=== PATIENT | male | born 1945 ===

== ENCOUNTER 2025-04-09 14:59 | Outpatient (AMB) | payer MEDICARE, SELFPAY ==
--- NOTE | 2025-04-09 15:12 | MHC.OFFVIS ---
Intake Visit Reasons: Follow up Allergies apixaban (From [employer]reos) Allergy (Unknown, Verified 04/08/25 11:17) Unknown HPI Comments Details: No change in his balance. No falls. Drinks 1 social drink twice a week since 09/19/24. He has been a heavy consumer of alcohol, drinking 6 ounces of liquor every day for 40+ years. In the last few years, he has reduced his alcohol intake.?In the last 20-30 years, he's noticed that his balance is not good and he staggers at times but keeps himself from falling.? He has no family history of ataxia.? He has never been worked up for his balance problems.? He rarely uses and Adderall once every few months if he has to do some concentration work.? He was diagnosed with ADD many years ago.? His blood pressure is under control.? At one point he had atrial fibrillation and was cardioverted and he is on Xarelto. His A fib came back. Had a retinal hemorrhage in right eye. [facility] Medical History (Updated 04/09/25 @ 15:15 by Radha Saunders MD) ESPERANZA on CPAP Cerebellar ataxia Review of Systems Const Details: ?Sleep:? Difficulty getting to sleepdenies.? Difficulty maintaining sleepdenies?.? Urge to move legsdenies.? Teeth grindingdenies.? Shouting or Kicking during sleepdenies.? Abnormal behavior during sleepdenies.? Excessive sleepdenies.? Snoringdenies.? Daytime sleepinessdenies. ???General/Constitutional:? Change in appetitedenies.? Chillsdenies.? Fatigueadmits.? Feverdenies.? Weight gaindenies.? Weight lossdenies. ???Ophthalmologic:? Blurred visiondenies.? Diminished visual acuitydenies. ???ENT:? Stuffinessdenies.? Decreased hearingdenies.? Dry mouthdenies.? Ear paindenies.? Nosebleeddenies.? Ringing in the earsdenies.? Sinus paindenies.? Sore throatdenies.? Swollen glandsdenies. ???Endocrine:? Cold intolerancedenies.? Excessive thirstdenies.? Frequent urinationdenies.? Heat intolerancedenies. ???Respiratory:? Shortness of breathadmits.? Chest paindenies.? Coughdenies. ???Breast:? Breast lumpdenies.? Nipple dischargedenies. ???Cardiovascular:? Chest pain at restdenies.? Chest pain with exertiondenies.? Claudicationdenies.? Dizzinessdenies.? Fluid accumulation in the legsdenies.? Irregular heartbeatdenies.? Palpitationsdenies. ???Gastrointestinal:? Abdominal paindenies.? Constipationdenies.? Diarrheadenies.? Difficulty swallowingdenies.? Heartburndenies.? Nauseadenies.? Rectal bleedingdenies. ???Hematology:? Easy bruisingdenies.? Prolonged bleedingdenies. ???Genitourinary:? Frequent urinationdenies.? Urgencydenies.? Incontinencedenies.? Erectile Dysfunctiondenies. ???Musculoskeletal:? Neck paindenies.? Back paindenies.? Muscle achesadmits.? Painful jointsdenies.? Sciaticadenies.? Weaknessadmits. ???Podiatric:? Difficulty walkingdenies.? Foot numbnessdenies. ???Neurologic:? Difficulty swallowingdenies.? Balance difficultyadmits.? Coordinationnormal.? Difficulty speakingdenies.? Dizzinessdenies.? Faintingdenies.? Gait abnormalityadmits.? Headachedenies.? Loss of strengthdenies.? Loss of use of extremitydenies.? Low back paindenies.? Memory lossdenies.? Seizuresdenies.? Ticsdenies.? Tingling/Numbnessdenies.? Transient loss of visiondenies.? Tremordenies. ???Psychiatric:? Anxietydenies.? Auditory/visual hallucinationsdenies.? Delusionsdenies.? Depressed mooddenies.? Stressorsdenies.? Substance abusedenies.? Suicidal thoughtsdenies. Physical Exam Neuro Other: Neurological: Abnormal neurological findings:??Broad based gait . Truncal ataxia on tandem walking. No limb ataxia.?Mental Status:??alert and oriented X 3,?Normal attention, orientation, memory and affect.?Cranial Nerves:??Pupils are equal, round and reactive to light. Fundoscopy shows normal disc bilaterally. External ocular muscles are intact. Visual martinez are full, no ptosis. Face is symmetrical, no facial weakness or droop. Facial sensations are normal. Tongue protrudes in midline. Palate elevates symmetrically. Shoulder shrugging is normal..?Motor Examination:??Normal muscle tone, bulk and strength,?No atrophy or fasciculations,?No drift of the extended upper extremities,?Deep tendon reflexes are 2+?,?Plantars are flexor?.?Straight Leg Raising:??90 degrees.?Sensory Exam:??Normal light touch, temperature, pinprick, vibration and joint-position sensations?,?Rhomberg sign is absent.?Coordination:??no ataxia,?no titubation,?aziduq-[id number], cxeu-ceuo-msws test and rapid alternating movements were normal.?Gait Exam:??Within normal limits.?Cerebellar Signs:??Lrhwul-jz-[id number] and asmn-cv-qjpc is normal,?no dysdiadochokinesia?.?Extrapyramidal System:??No tremor, rigidity with normal facial expressions,?No bradykinesia, no bradyphrenia. Normal arm swing and posture. No propulsion or retropulsion.?Speech:??Normal,?no dysphasia or dysarthria..? Mini Mental Status Exam: Level of Consciousness:??Alert.?Orientation:??Knows correct year, month, date, day and season,?Knows correct city, county and state. Knows correct location and floor.?Registration:??Able to register 3 objects.?Attention:??Serial 7's performed accurately.?Recall:??Able to recall 3 out of 3 objects.?Language:??Normal spontaneous speech, fluency, repetition,naming, comprehension, reading and writing.?Total Score:??30/30.? General Examination: GENERAL APPEARANCE:??normal,?in no acute distress.?HEAD:??normocephalic,?atraumatic.?EYES:??sclera non-icteric,?conjunctiva clear.?EARS:??auditory canal clear,?tympanic membrane intact, clear.?NOSE:??no lesions.?ORAL CAVITY:??gums normal,?mucosa moist,?no lesions.?THROAT:??clear.? 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 Code(s): G11.9 - Hereditary ataxia, unspecified Category: Medical (2) ESPERANZA on CPAP: Code(s): G47.33 - Obstructive sleep apnea (adult) (pediatric) Category: Medical Plan Absolutely no alcohol use. Take Vitamin B complex 1/ day??. Daily walking for balance. Coding Level of Care Code Est Pt Level 4 (09472) Diagnoses Cerebellar ataxia G11.9 ESPERANZA on CPAP G47.33
--- OUTSIDE RECORDS SUMMARY | 2025-04-09 17:59 | XMS_ITS ---
Author Name [facility] Organization Unknown Encounters Encounter Type Encounter Reason Primary Diagnosis Location Date Ambulatory [facility], [facility] 06/06/2023 Care Team Organization Name Specialty Phone Email Start Date End Da te Bella Valverde MD, [facility] 024 08/15/2023
--- OUTSIDE RECORDS SUMMARY | 2025-04-09 17:59 | XMS_ITS | Encounter Summary ---
Author Organization [facility] Address [address] [place] [address] Care Team Providers Care Account Manager Sales Representative Name Role Phone Jasbir Wang MD Primary Care Provider [phone] Encounter Details Date Type Department Care Team (Late st Contact Info) Description 04/08/2025 Telephone Internal Medicine - [facility] [address] [facility] [place] [phone] Whit Oliver MA Social History Tobacco Use Types Packs/Day Years Used Date Smoking Tobacco: Former Smokeless Tobacco: Former Alcohol Use Standard Drinks/Week Comments Yes 0 (1 standard drink = 0.6 oz pur e alcohol) Sex and Gender Information Value Date Recorded Sex Assigned at Not on file Legal Sex Male 8:13 AM EST Gender Identity Not on file Sexual Orientation Not on file documented as of this encounter Progress Notes * Angela Hills MA - 04/09/2025 3:51 PM EST I spoke with Mr. Rivera inform on 04/08/25 benazepril 40 mg was called into pharmacy . Confirm 04/18/25 visit pending, per patient . KA * Whit Oliver MA - 04/08/2025 9:59 AM EST Left message to call back ask to speak to Dr Kathleen VELEZ x [phone] If no answer, please re-message to ebony stauffer. Regarding appt on 04/18/25. documented in this encounter Plan of Treatment Upcoming Encounters Date Type Department Care Team (Late st Contact Info) Description 04/14/2025 9:40 AM EST Office Visit [facility] [address] [place] [address] [address] [place] [phone] Neva Martines NP [address] [place] [address] [address] [place] [phone] 04/18/2025 11:00 AM EST Office Visit Internal Medicine - [address] [phone] Jasbir Wang MD [address] [place] [phone] documented as of this encounter Visit Diagnoses Not on filedocumented in this encounter Care Teams Account Manager Sales Representative Relationship Specialty Start Date End Date Jasbir Wang MD [address] [place] [phone] PCP - General Internal Medicine 07/22/24 documented as of this encounter
--- OUTSIDE RECORDS SUMMARY | 2025-04-09 17:59 | XMS_ITS | Clinical Summary ---
Author Organization [facility] Address [address] [place] [address] Phone Care Team Providers Care Call Center Analyst Name Role Phone Jasbir Wang MD Primary Care Provider [phone] Allergies Active Allergy Reactions Criticality Noted Date Comments Apixaban Medium 07/25/2023 Rash all over body Dabigatran Etexilate Rash 09/06/2024 Medications metoprolol succinate (TOPROL-XL) 25 mg 24 hr tablet Take 1 tablet (25 mg total) by mouth 1 (one) time each day. 90 tablet 1 5 Active rivaroxaban (Xarelto) 20 mg tablet TAKE 1 TABLET BY MOUTH DAILY 90 tablet 1 5 Active amLODIPine (NORVASC) 10 mg tablet TAKE 1 TABLET BY MOUTH DAILY 90 tablet 5 Active benazepriL (LOTENSIN) 40 mg tablet TAKE 1 TABLET BY MOUTH DAILY 90 tablet 1 5 Active benazepriL (LOTENSIN) 40 mg tablet TAKE 1 TABLET BY MOUTH DAILY 90 tablet 1 5 04/08/20 25 Discontinued Active Problems Problem Noted Date Diagnosed Date Edema 10/23/2023 Overview (04/15/2024): Last Assessment & Plan: The patient has approximately edema which per his description is not present in the morning but develops throughout the day and is worse in the afternoon. The symptoms are suggestive of venous insufficiency. Will order a venous insufficiency study for further evaluation. Atrial fibrillation (CMS/HCC V24, CMS/HCC V28) 0 07/24/2023 Overview (04/15/2024): Last Assessment & Plan: The patient has a history of atrial fibrillation status post elective electrical cardioversion in November. EKG today shows normal sinus rhythm at a rate of 66 bpm. He denies any perception of atrial fibrillation or palpitations. He has a OBO1QS4- VASc score of 5. His last office visit he was transitioned to Xarelto given an ongoing rash in his bilateral lower legs. On today's visit, he reports since transitioning to Xarelto, he has complete resolution of the rash and denies any complaints today. He will continue to follow with dermatology and his primary care provider. He will also continue on rate control therapy with beta-khoa. Recent echocardiogram showed normal LV function. At this point, we will continue current therapies and he will notify me of any changes. Assessment & Plan (07/23/2024 8:08 AM EDT): The patient has a history of atrial fibrillation status post elective electrical cardioversion in the past. He denies any perception of atrial fibrillation or palpitations. He has a [id number]-[id number] score of 5. His heart rate is well controlled today and continues on beta-khoa. Last echocardiogram showed normal LV function. He denies any abnormal bleeding or bruising. At this point, we will continue current therapies and he will notify me of any changes. Right inguinal hernia 03/19/2019 Bilateral carpal tunnel syndrome 12/10/2018 Overview (04/15/2024): S/p surgery Essential hypertension 02/27/2015 Overview (04/15/2024): Last Assessment & Plan: Patient's blood pressure is well-controlled today. He will continue his current antihypertensive medication regimen as prescribed. Assessment & Plan (07/23/2024 8:08 AM EDT): BP well controlled at home. Slightly elevated today given he reports he lost his keys on the way here. He will continue his current medication regimen and continue to monitor his Bps at home. He will notify me of any consistently elevated readings. Adenomatous polyp of colon 10/03/2013 Erectile dysfunction 01/06/2011 Obesity (BMI 30-39.9) 01/06/2011 Liver nodule 05/17/2007 Lung mass 05/14/2007 Overview (04/15/2024): 11/2007 and 11/2009. Stable, benign pulmonary nodules. There is no indication for further followup. ADD (attention deficit disorder) 11/15/2005 Overview (04/15/2024): Sees Dr. Mena Resolved Problems Problem Noted Date Diagnosed Date Resolved Date Dyspnea 10/23/2023 07/23/2024 Overview (04/15/2024): Last Assessment & Plan: The patient has symptoms of exertional dyspnea. Recent echocardiogram showed a normal cardiac function and no significant valvular disease. The patient does have multiple risk factors for the development of CAD including hypertension and hyperlipidemia. Therefore, we will need to consider the possibility of ischemic heart disease. Will pursue an exercise stress test to rule out the presence of ischemic heart disease as a cause of the patient's symptoms TIA (transient ischemic attack) 02/10/2020 07/23/2024 Overview (04/15/2024): Last Assessment & Plan: Patient had TIA 01/[address] angio did not show any significant stenosis, 30 day monitor was normal and echocardiogram did not show any abnormalities. Patient was previously on aspirin and statin but he stopped both of these due to GI upset. He was previously on chewable aspirin. We discussed his h/o TIA and recommend he try enteric coated asprin. He will continue to follow with PCP regarding GI upset. Encounters Date Type Department Care Team Description 04/08/2025 Telephone Internal Medicine - [facility] [address] [place] [id number] Whit Oliver MA 03/18/2025 Telephone [facility] [address] [address] [place] [phone] Neva Martines NP 02/11/2025 2:15 PM EDT [facility] [address] [place] [phone] Chas Garza PA Generalized abdominal pain (Primary Dx) 02/03/2025 3:50 PM EDT - 02/03/2025 10:02 PM EDT Emergency [facility] Emergency [address] [place] [address] Betty Vu MD Pneumonia of both lungs due to infectious organism, unspecified part of lung (Primary Dx); Lightheadedness; Other fatigue; Hypokalemia; Acute cough; Atrial fibrillation, unspecified type (CMS/HCC V24, CMS/HCC V28); Bradycardia Discharge Disposition: Home or Self Care from Last 3 Months Immunizations Immunization Administration Dates Next Due Influenza trivalent, 0.5mL ( Fluad) 65yo and older 02/10/2020,12/22/2016,02/10/2016 Influenza trivalent, 0.5mL, preservative free (Fluarix; FluLaval; Fluzone) ages 6mo and older (Afluria) 3 years and older 01/18/2018,02/27/2015,05/10/2014,12/25,01/10/2012,01/13/2011,01/19/2010 Influenza, Unspecified 02/06/2024,01/30/2023,07/2021 Pfizer SARS-CoV-2 COVID-19, mRNA, LNP-S, preservative free 08/18/2020 Pneumococcal conjugate 13 va lent (Prevnar 13, PCV13) 2mo and older 06/19/2017 Pneumococcal polysaccharide 23 valent (Pneumovax 23) 2yo and older 06/14/2012 Tdap Tetanus diptheria acell ular pertussis (Boostrix; Adacel) 7yo and older 10/03/2013 Surgical History Surgery Date Site/Laterality Comments HERNIA REPAIR PROCEDURE: REPAIR UMBILICAL HERNIA COLONOSCOPY 2006 PROCEDURE: HISTORICAL COLONOSCOPY; COMMENT: adenoma; repeat in five years COLONOSCOPY 04/21/14 PROCEDURE: MN COLONOSCOPY STOMA DX INCLUDING COLLJ SPEC SPX; COMMENT: tics; repeat in 10 yrs OTHER SURGICAL HISTORY Left PROCEDURE: MN RPR 1ST INGUN HRNA AGE 5 YRS/> REDUCIBLE CARPAL TUNNEL RELEASE PROCEDURE: MN NEUROPLASTY &/TRANSPOS MEDIAN NRV CARPAL TUNNE Medical History Medical History Date Comments Attention deficit disorder w ithout mention of hyperactivity DX:Attention deficit disorde r without mention of hyperactivity Unspecified essential hypertension DX:Unspecified essential hypertension Erectile dysfunction DX:Erectile dysfunction Obesity DX:Obesity Cerebrovascular disease DX:Cereb rovascular disease Atrial fibrillation (CMS/HCC V24, CMS/HCC V28) Family History Medical History Relation Name Comments Heart attack Father Alzheimer's disease Mother Breast cancer Mother Cataracts Mother Diabetes Mother Hypertension Mother Relation Name Status Comments Father OH at age 78 Mother Alive hyperlipid, Social History Tobacco Use Types Packs/Day Years Used Date Smoking Tobacco: Former Smokeless Tobacco: Former Tobacco Cessation:Counseling Given: Not Answered Alcohol Use Standard Drinks/Week Comments Yes 0 (1 standard drink = 0.6 oz pur e alcohol) Sex and Gender Information Value Date Recorded Sex Assigned at Not on file Legal Sex Male 8:13 AM EST Gender Identity Not on file Sexual Orientation Not on file Obstetrics History Last Filed Vital Signs Vital Sign Reading Time Taken Comments Blood Pressure 162/67 02/11/2025 2:30 PM EDT Pulse 67 02/11/2025 2:30 PM EDT Temperature 37.1 C (98.8 F) 02/11/2025 2:30 PM EDT Respiratory Rate 16 02/03/2025 4:37 PM EDT Oxygen Saturation 98% 02/11/2025 2:30 PM EDT Inhaled Oxygen Concentration - - Weight 109 kg (240 lb) 02/03/2025 2:01 PM EDT Height 177.8 cm (5' 10 ) 02/03/2025 2:01 PM EDT Body Mass Index 34.44 02/03/2025 2:01 PM EDT Plan of Treatment Upcoming Encounters Date Type Department Care Team (Late st Contact Info) Description 04/14/2025 9:40 AM EST Office Visit [facility] [address] [place] [address] [address] [place] [phone] Neva Martines NP [address] [place] [address] [address] [place] [id number] 04/18/2025 11:00 AM EST Office Visit Internal Medicine - [facility] [address] [place] [address] Jasbir Wang MD [address] [place] [phone] Health Maintenance Due Date Last Done Comments Zoster Vaccines (1 of 2) 1997 RSV Immunization Adult Patients (1 - 1-dose 75+ series) 2022 Falls Risk Assessment 04/16/2022 Social Influencers of Health Screening 04/16/2022 DTaP,Tdap,and Td Vaccines (2 - Td or Tdap) 10/04/2023 10/03/2013 Depression Screening 05/08/2024 03/01/2024 COVID-19 Vaccine ( - season) 2025 07/29/2021, 08/18/2020 Medicare Annual Wellness Visit 03/01/2025 03/01/2024 Hypertension/CHF/CAD Annual BMP Blood Test 02/13/2026 02/13/2025, 02/03/2025, 07/31/2024, Additional history exists Cholesterol Screening (Lipid Panel) 07/31/2029 07/31/2024, 11/07/2023, 11/07/2023 Hepatitis C Screening Completed 10/03/2013 Pneumococcal Vaccine: 50+ Years Completed 06/19/2017, 06/14/2012 Influenza Vaccine Completed 12/28/2024, , 02/06/2024, Additional history exists HIB Vaccines Aged Out No longer eligi ble based on patient's age to complete this topic HPV Vaccines Aged Out No longer eligi ble based on patient's age to complete this topic Hepatitis A Vaccines Aged Out No long er eligible based on patient's age to complete this topic Hepatitis B Vaccines Aged Out No long er eligible based on patient's age to complete this topic IPV Vaccines Aged Out No longer eligi ble based on patient's age to complete this topic MMR Vaccines Aged Out No longer eligi ble based on patient's age to complete this topic Meningococcal ACWY Vaccine Aged Out N o longer eligible based on patient's age to complete this topic Meningococcal B Vaccine Aged Out No l onger eligible based on patient's age to complete this topic RSV Immunization Patients Under 20 months Aged Out No longer eligible based on patient's age to complete this topic Varicella Vaccines Aged Out No longer eligible based on patient's age to complete this topic Procedures Procedure Name Priority Date/Time Associated Diagnosis Comments CBC WITH AUTO DIFFERENTIAL Routine 02/13/2025 11:03 AM EDT Generalized abdominal pain CBC AND DIFFERENTIAL Routine 02/13/2025 11:03 AM EDT Generalized abdominal pain AMYLASE Routine 02/13/2025 11:03 AM EDT Generalized abdominal pain LIPASE Routine 02/13/2025 11:03 AM EDT Generalized abdominal pain COMPREHENSIVE METABOLIC PANEL Routine 02/13/2025 11:03 AM EDT Generalized abdominal pain ECG ANNOTATED 02/04/2025 CT CHEST W CONTRAST STAT 02/03/2025 6 :03 PM EDT ECG 12-LEAD STAT 02/03/2025 4:59 PM EDT CBC WITH AUTO DIFFERENTIAL STAT 02/03/2025 4:42 PM EDT TROPONIN I HIGH SENSITIVITY STAT 02/03/2025 4:42 PM EDT B-TYPE NATRIURETIC PEPTIDE STAT 02/03/2025 4:42 PM EDT MAGNESIUM STAT 02/03/2025 4:42 PM EDT LIPASE STAT 02/03/2025 4:42 PM EDT COMPREHENSIVE METABOLIC PANEL STAT 02/03/2025 4:42 PM EDT CBC AND DIFFERENTIAL STAT 02/03/2025 4:42 PM EDT RESPIRATORY VIRUS PANEL MOLECULAR STUDY STAT 02/03/2025 4:42 PM EDT XR CHEST 2 VIEWS STAT 02/03/2025 2:34 PM EDT ECG 12-LEAD STAT 02/03/2025 2:07 PM EDT LIPID PANEL WITH REFLEX TO DIRECT LDL Routine 07/31/2024 10:53 AM EDT Longstanding persistent atrial fibrillation (CMS/HCC V24, CMS/HCC V28) Essential hypertension DEPRESSION SCREENING Routine 03/01/2024 HEPATITIS C SCREENING Routine 10/03/2013 from Last 3 Months or Most Recently Relevant to Health Maintenance Results * (ABNORMAL) CBC auto differential (02/13/2025 11:03 AM EDT) Only the most recent of2 resultswithin the time period is included. WBC 7.4 4.8 - 10.8 K/mcL LAB HEMETOLOGY METHOD 02/13/2025 2:03 PM EDT [facility] RBC 4.80 4.50 - 5.50 M/mcL LAB HEMETOLOGY METHOD 02/13/2025 2:03 PM EDT [facility] Hemoglobin 14.7 13.5 - 17.5 g/dL LAB HEMETOLOGY METHOD 02/13/2025 2:03 PM [facility] Hematocrit 43.6 42.0 - 54.0 % LAB HEMETOLOGY METHOD 02/13/2025 2:03 PM EDT [facility] MCV 91.4 79.0 - 98.0 FL LAB HEMETOLOGY METHOD 02/13/2025 2:03 PM EDT [facility] MCH 30.8 27.0 - 32.0 pcg LAB HEMETOLOGY METHOD 02/13/2025 2:[facility] PM [facility] MCHC 33.7 32.0 - 37.0 g/dL LAB HEMETOLOGY METHOD 02/13/2025 2:03 PM [facility] RDW 13.6 11.0 - 15.0 % LAB HEMETOLOGY METHOD 02/13/2025 2:03 PM [facility] Platelets 237 130 - 400 K/mcL LAB HEMETOLOGY METHOD 02/13/2025 2:03 PM [facility] MPV 12.4(H) 7.0 - 11.0 FL LAB HEMETOLOGY METHOD 02/13/2025 2:03 PM [facility] NRBC 0.0 <1.0 % LAB HEMETOLOGY METHOD 02/13/2025 2:03 PM [facility] NRBC Absolute 0.00 <0.10 K/mcL LAB HEMETOLOGY METHOD 02/13/2025 2:03 PM [facility] Neutrophils Relative 59.6 % LAB HEMETOLOGY METHOD 02/13/2025 2:03 PM [facility] Lymphocytes Relative 22.9 % LAB HEMETOLOGY METHOD 02/13/2025 2:03 PM [facility] Monocytes Relative 14.5 % LAB HEMETOLOGY METHOD 02/13/2025 2:03 PM [facility] Eosinophils Relative 2.0 % LAB HEMETOLOGY METHOD 02/13/2025 2:03 PM [facility] Basophils Relative 0.9 % LAB HEMETOLOGY METHOD 02/13/2025 2:03 PM [facility] Immature Granulocytes Relative 0.1 % LAB HEMETOLOGY METHOD 02/13/2025 2:03 PM [facility] Neutrophils Absolute 4.40 1.50 - 7.00 K/mcL LAB HEMETOLOGY METHOD 02/13/2025 2:03 PM [facility] Lymphocytes Absolute 1.69 1.00 - 5.00 K/mcL LAB HEMETOLOGY METHOD 02/13/2025 2:03 PM EDT [facility] Monocytes Absolute 1.07(H) 0.20 - 1.00 K/mcL LAB HEMETOLOGY METHOD 02/13/2025 2:03 PM EDT [facility] Eosinophils Absolute 0.15 0.00 - 0.50 K/[facility] LAB HEMETOLOGY METHOD 02/13/2025 2:03 PM EDT [facility] Basophils Absolute 0.07 0.00 - 0.20 K/[facility] LAB HEMETOLOGY METHOD 02/13/2025 2:03 PM EDT [facility] Immature Granulocytes Absolute 0.01 0.00 - 0.03 K/[facility] LAB HEMETOLOGY METHOD 02/13/2025 2:03 PM EDT [facility] Blood Venous blood specimen / Unknown Venipuncture / Unknown 02/13/2025 11:03 AM EDT 02/13/2025 11:03 AM EDT us Chas RESENDEZ LAB BLOOD ORDERABLES Final Result Performing Organization Address City/[facility]/ZIP Co de Phone Number [facility] [address] [place] [address], [place] [phone] * Lipase (02/13/2025 11:03 AM EDT) Only the most recent of2 resultswithin the time period is included. Lipase 30 13 - 75 unit/L LAB CHEMISTRY METHOD 02/13/2025 3:35 PM EDT [facility] Blood Venous blood specimen / Unknown Venipuncture / Unknown 02/13/2025 11:03 AM EDT 02/13/2025 11:03 AM EDT us Chas RESENDEZ LAB BLOOD ORDERABLES Final Result [facility] [address] [place] [address], [place] [phone] * Amylase (02/13/2025 11:03 AM EDT) Pathologist [facility] [place] Amylase 56 25 - 115 unit/L LAB CHEMISTRY METHOD 02/13/2025 3:35 PM [facility] Blood Venous blood specimen / Unknown Venipuncture / Unknown 02/13/2025 11:03 AM EDT 02/13/2025 11:03 AM EDT Chas RESENDEZ LAB BLOOD ORDERABLES Final Result [facility] [address] [place] [address], * (ABNORMAL) Comprehensive metabolic panel (02/13/2025 11:03 AM EDT) Only the most recent of2 resultswithin the time period is included. Pathologist [facility] [place] Sodium 139 133 - 145 mmol/L LAB CHEMISTRY METHOD 02/13/2025 3:37 PM [facility] Potassium 3.8 3.5 - 5.5 mmol/L LAB CHEMISTRY METHOD 02/13/2025 3:37 PM [facility] Chloride 102 96 - 110 mmol/L LAB CHEMISTRY METHOD 02/13/2025 3:37 PM [facility] CO2 31 21 - 32 mmol/L LAB CHEMISTRY METHOD 02/13/2025 3:37 PM [facility] Anion Gap 6 3 - 11 LAB CHEMISTRY METHOD 02/13/2025 3:37 PM [facility] Glucose 115(H) 70 - 100 mg/dL LAB CHEMISTRY METHOD 02/13/2025 3:37 PM [facility] BUN 10 5 - 25 mg/dL LAB CHEMISTRY METHOD 02/13/2025 3:37 PM [facility] Creatinine 0.98 0.70 - 1.30 mg/dL LAB CHEMISTRY METHOD 02/13/2025 3:37 PM T [facility] eGFR 79 >=60 mL/min/1. 73m2 LAB CHEMISTRY METHOD 02/13/2025 3:37 PM T [facility] Comment:Calculation based on the Chronic Kidney Disease Epidemiology Collaboration (CKD-EPI) equation refit without adjustment for race. BUN/Creatinine Ratio 10.2 LAB CHEMISTRY METHOD 02/13/2025 3:37 PM [facility] Calcium 9.5 8.5 - 10.5 mg/dL LAB CHEMISTRY METHOD 02/13/2025 3:37 PM [facility] AST (SGOT) 24 10 - 42 unit/L LAB CHEMISTRY METHOD 02/13/2025 3:37 PM [facility] ALT (SGPT) 23 10 - 60 unit/L LAB CHEMISTRY METHOD 02/13/2025 3:37 PM [facility] Alkaline Phosphatase 123(H) 42 - 121 unit/L LAB CHEMISTRY METHOD 02/13/2025 3:37 PM [facility] Total Protein 8.3(H) 6.0 - 8.0 g/dL LAB CHEMISTRY METHOD 02/13/2025 3:37 PM [facility] Albumin 4.5 3.2 - 5.0 g/dL LAB CHEMISTRY METHOD 02/13/2025 3:37 PM [facility] Total Bilirubin 1.4 0.0 - 1.4 mg/dL LAB CHEMISTRY METHOD 02/13/2025 3:37 PM [facility] Blood Venous blood specimen / Unknown Venipuncture / Unknown 02/13/2025 11:03 AM EDT 02/13/2025 11:03 AM EDT us Chas RESENDZE LAB BLOOD ORDERABLES Final Result [facility] [address] [place] [address], * ECG-Annotated (02/04/2025) us Provider Onbase ECG ORDERABLES Final Result * CT Chest w Contrast (02/03/2025 6:03 PM EDT) Anatomical Region Laterality Modality Body Computed Tomogra phy 02/03/2025 6:46 PM EDT Impressions 02/03/2025 6:46 PM EDT 1. Mild ground-glass opacities within the lower lungs. This could be secondary to atelectasis, scarring, interstitial infiltrates or edema. 2. There is a 7 mm lingular nodule. Recommend follow-up per Fleischner criteria. This document has been electronically signed by: Randi Duong MD on 02/03/2025 18:46:10 Narrative 02/03/2025 6:46 PM EDT INDICATION: eval infection vs edema vs other CT chest with contrast Comparison: DX/SR - XR CHEST 2 VW - 02/03/25 14:47 EDT Findings: Mildly enlarged heart. Calcifications are present in association with the aortic valve. The visualized thyroid and mediastinum are unremarkable. No consolidation or pleural effusion. There is mild ground-glass opacity within the bilateral lower lungs. There is a 7 mm lingular nodule on image 69. There are multiple tiny granulomas within the lungs. There is mild lymphadenopathy within the mare hepatis with lymph nodes measuring up to 1 cm in short axis dimension. Otherwise unremarkable upper abdomen. The bones are intact. Procedure Note Aderholdt-Randi Duong MD - 02/03/2025 INDICATION: eval infection vs edema vs other CT chest with contrast Comparison: DX/SR - XR CHEST 2 VW - 02/03/25 14:47 EDT Findings: Mildly enlarged heart. Calcifications are present in association withthe aortic valve. The visualized thyroid and mediastinum are unremarkable. No consolidation or pleural effusion. There is mild ground-glass opacity within the bilateral lower lungs. There is a 7 mm lingular nodule onimage 69. There are multiple tiny granulomas within the lungs. There is mild lymphadenopathy within the mare hepatis with lymph nodes measuring up to 1 cm in short axis dimension. Otherwise unremarkableupper abdomen. The bones are intact. IMPRESSION: 1. Mild ground-glass opacities within the lower lungs. This could be secondary to atelectasis, scarring, interstitial infiltrates or edema. 2. There is a 7 mm lingular nodule. Recommend follow-up per Fleischner criteria. This document has been electronically signed by: Randi Duong MD on 02/03/2025 18:46:10 Betty Vu MD IMG CT PROCEDURES Final Result * 12-Lead ECG (02/03/2025 4:59 PM EDT) Only the most recent of2 resultswithin the time period is included. [facility] Ventricular Rate ECG 51 BPM GEMUSE Atrial Rate 340 BPM GEMUSE QRS Duration 102 ms GEMUSE Q-T Interval 442 ms GEMUSE QTc 407 ms GEMUSE R Belle 5 degrees GEMUSE T Belle 0 degrees GEMUSE ECG Interpretation Atrial fibrillation with slow ventricular response Incomplete right bundle branch block Nonspecific ST and T wave abnormality Abnormal ECG When compared with ECG of 03-FEB-2025 14:07, No significant change was found Confirmed by MD Papi, [place] ([id number]) on 02/04/2025 8:49:17 AM GEMUSE 02/03/2025 4:59 PM EDT 02/04/2025 8:49 AM EDT Betty Vu MD ECG ORDERABLES Final Result GEMUSE * Respiratory virus panel molecular study (02/03/2025 4:42 PM EDT) [facility] Adenovirus Detection by PCR Not Detected Not Detected LAB MICROBIOLOGY METHOD 02/03/2025 6:17 PM EDT [facility] Influenza A PCR Not Detected Not Detected LAB MICROBIOLOGY METHOD 02/03/2025 6:17 PM EDT [facility] Influenza B PCR Not Detected Not Detected LAB MICROBIOLOGY METHOD 02/03/2025 6:17 PM EDT [facility] Coronavirus 229E Not Detected Not Detected LAB MICROBIOLOGY METHOD 02/03/2025 6:17 PM EDT [facility] Coronavirus HKU1 Not Detected Not Detected LAB MICROBIOLOGY METHOD 02/03/2025 6:17 PM EDT [facility] Coronavirus OC43 Not Detected Not Detected LAB MICROBIOLOGY METHOD 02/03/2025 6:17 PM EDT [facility] Coronavirus NL63 Not Detected Not Detected LAB MICROBIOLOGY METHOD 02/03/2025 6:17 PM EDT [facility] Parainfluenza Virus 1 Not Detected Not Detected LAB MICROBIOLOGY METHOD 02/03/2025 6:17 PM EDT [facility] Parainfluenza Virus 2 Not Detected Not Detected LAB MICROBIOLOGY METHOD 02/03/2025 6:17 PM EDT [facility] Parainfluenza Virus 3 Not Detected Not Detected LAB MICROBIOLOGY METHOD 02/03/2025 6:17 PM EDT [facility] Parainfluenza Virus 4 Not Detected Not Detected LAB MICROBIOLOGY METHOD 02/03/2025 6:17 PM EDT [facility] RSV PCR Not Detected Not Detected LAB MICROBIOLOGY METHOD 02/03/2025 6:17 PM EDT [facility] Human Metapneumovirus A and B Not Detected Not Detected LAB MICROBIOLOGY METHOD 02/03/2025 6:17 PM EDT [facility] Rhinovirus/Entero virus Not Detected Not Detected LAB MICROBIOLOGY METHOD 02/03/2025 6:17 PM EDT [facility] Bordetella pertussis Not Detected Not Detected LAB MICROBIOLOGY METHOD 02/03/2025 6:17 PM EDT [facility] Bordetella parapertussis Not Detected Not Detected LAB MICROBIOLOGY METHOD 02/03/2025 6:17 PM EDT [facility] Mycoplasma pneumo by PCR Not Detected Not Detected LAB MICROBIOLOGY METHOD 02/03/2025 6:17 PM EDT [facility] Chlamydia pneumoniae Not Detected Not Detected LAB MICROBIOLOGY METHOD 02/03/2025 6:17 PM EDT [facility] SARS COV-2 Not Detected Not Detected LAB MICROBIOLOGY METHOD 02/03/2025 6:17 PM EDT [facility] Swab Both anterior nares / Unknown Non-blood Collection / Unknown 02/03/2025 4:42 PM EDT 02/03/2025 5:26 PM EDT Narrative [facility] - 02/03/2025 6:17 PM EDT Testing was performed using the Linguastat Respiratory Pathogen PCR Assay. All results must be correlated with the clinical findings. Results should not be used as the sole basis for diagnosis. False Negative results may occur from the presence of sequence variants in the region targeted by the assay or the presence of inhibitors. Results may be affected by concurrent antiviral/antimicrobial therapy or levels of organisms that are below the limit of detection. Betty Vu MD LAB MICROBIOLOGY - GENERAL ORDER CHLOÉ Final Result Performing Organization Address City/[facility]/ZIP Co de Phone Number [facility] [address] [place] [address], * Troponin I high sensitivity (02/03/2025 4:42 PM EDT) [facility] High Sensitivity Troponin I 37 <=79 ng/L LAB CHEMISTRY METHOD 02/03/2025 5:29 PM EDT [facility] Blood Venous blood specimen / Unknown Venipuncture / Unknown 02/03/2025 4:42 PM EDT 02/03/2025 4:54 PM EDT Narrative [facility] - 02/03/2025 5:29 PM EDT High levels of biotin in samples may falsely decrease hsTroponin values. Use caution when interpreting hsTroponin results in patients taking biotin who exhibit renal impairment (eGFR <60) or in patients taking more than 20 mg/day of biotin. us Betty Vu MD LAB BLOOD ORDERABLES Final Resul t [facility] [address] [place] [address], [place] [phone] * (ABNORMAL) B-type natriuretic peptide (02/03/2025 4:42 PM EDT) Pathologist [facility] BNP 192(H) <=100 pcg/mL LAB CHEMISTRY METHOD 02/03/2025 5:32 PM EDT [facility] Blood Venous blood specimen / Unknown Venipuncture / Unknown 02/03/2025 4:42 PM EDT 02/03/2025 4:53 PM EDT us Betty Vu MD LAB BLOOD ORDERABLES Final Resul t Performing Organization Address [facility]/ZIP Co de Phone Number [facility] [address] [place] [address], [place] [phone] * Magnesium (02/03/2025 4:42 PM EDT) [facility] Magnesium 2.3 1.9 - 2.6 mg/dL LAB CHEMISTRY METHOD 02/03/2025 5:38 PM EDT [facility] Blood Venous blood specimen / Unknown Venipuncture / Unknown 02/03/2025 4:42 PM EDT 02/03/2025 4:54 PM EDT us Betty Vu MD LAB BLOOD ORDERABLES Final Resul t Performing Organization Address [facility]/ZIP Co de Phone Number [facility] [address] [place] [address], [place] [phone] * XR Chest 2 Views (02/03/2025 2:34 PM EDT) Anatomical Region Laterality Modality Body Radiographic Ivonne ging 02/03/2025 3:33 PM EDT Impressions 02/03/2025 3:34 PM EDT FINDINGS/IMPRESSION: Patchy interstitial opacities in both lungs could represent atypical infectious/inflammatory process versus pulmonary congestion. Presumed left basilar volume loss. No pleural effusion. -------- FINAL REPORT -------- Dictated By: Gordy Page Dictated Date: 02/03/2025 15:33 ET Assigned Physician: Gordy Page Reviewed and Electronically Signed By: Gordy Page Signed Date: 02/03/2025 15:34 ET Workstation ID: [id number] Transcribed By: Self Edit Transcribed Date: 02/03/2025 15:33 ET Narrative 02/03/2025 3:34 PM EDT XR CHEST 2 VIEWS INDICATION: chest pain TECHNIQUE: XR CHEST 2 VIEWS COMPARISON: No priors available. Procedure Note Gordy Page MD - 02/03/2025 XR CHEST 2 VIEWS INDICATION: chest pain TECHNIQUE: XR CHEST 2 VIEWS COMPARISON: No priors available. IMPRESSION: FINDINGS/IMPRESSION: Patchy interstitial opacities in both lungs couldrepresent atypical infectious/inflammatory process versus pulmonarycongestion. Presumed left basilar volume loss. No pleural effusion. -------- FINAL REPORT -------- Dictated By: Gordy Page Dictated Date: 02/03/2025 15:33 ET Assigned Physician: Gordy Page Reviewed and Electronically Signed By: Gordy Page Signed Date: 02/03/2025 15:34 ET Workstation ID: [id number] Transcribed By: Self Edit Transcribed Date: 02/03/2025 15:33 ET Betty Vu MD IMG XR PROCEDURES Final Result * Lipid panel with reflex to direct LDL (07/31/2024 10:53 AM EDT) Cholesterol 179 0 - 200 mg/dL LAB CHEMISTRY METHOD 07/31/2024 3:46 PM EDT [facility] Triglycerides 137 0 - 150 mg/dL LAB CHEMISTRY METHOD 07/31/2024 3:46 PM EDT [facility] HDL 54 >=40 mg/dL LAB CHEMISTRY METHOD 07/31/2024 3:46 PM EDT [facility] LDL Calculated 98 0 - 100 mg/dL LAB CHEMISTRY METHOD 07/31/2024 3:46 PM EDT [facility] VLDL Cholesterol Chuck 27.4 mg/dL LAB CHEMISTRY METHOD 07/31/2024 3:46 PM EDT [facility] Non HDL Chol. (LDL+VLDL) 125 <145 mg/dL LAB CHEMISTRY METHOD 07/31/2024 3:46 PM EDT [facility] Chol/HDL Ratio 3.3 0.0 - 4.4 LAB CHEMISTRY METHOD 07/31/2024 3:46 PM EDT [facility] Blood Venous blood specimen / Unknown Venipuncture / Unknown 07/31/2024 10:53 AM EDT 07/31/2024 10:53 AM EDT Jasbir Wang MD LAB BLOOD ORDERABLES Final Res ult [facility] [address] [place] [address], * Depression Screening (03/01/2024) Pathologist [facility] Depression Screening Abstracted Historical Provider HEALTH MAINTENANCE Final Result * Hepatitis C Screening (10/03/2013) [facility] Hepatitis C Screening Abstracted Historical Provider HEALTH MAINTENANCE Final Result from Last 3 Months or Most Recently Relevant to Health [place] [id number] [employer] - [place] MEDICARE ADVANTAGE Care Teams Call Center Analyst Relationship Specialty Start Date End Date Jasbir Wang MD [address] [place] [id number] PCP - General Internal Medicine 07/22/24
== END 2025-04-09 15:22 | disposition home or self-care (01) ==
PROVIDERS: PCP Internal Medicine; Visit Provider Psychiatry & Neurology Neurology
DX: G11.9 Hereditary ataxia, unspecified (principal); G47.33 Obstructive sleep apnea (adult) (pediatric)
CPT/HCPCS: 99214

== ENCOUNTER → 2025-04-09 14:59 | Outpatient (BNVA) | payer MEDICARE, SELFPAY | PROVIDERS: PCP Internal Medicine; Visit Provider Psychiatry & Neurology Neurology | DX: G47.33 Obstructive sleep apnea (adult) (pediatric) (principal); G11.9 Hereditary ataxia, unspecified; Z79.899 Other long term (current) drug therapy | CPT/HCPCS: 99212 ==